=== PATIENT | male | born 2000 | race Caucasian/White ===

== ENCOUNTER 2018-07-07 10:06 | Emergency (ER) | payer OTHER ==
[2018-07-07 10:13] VITALS: BP 130/66
[2018-07-07] MEDS ORDERED: GUAIFENESIN 600 MG TABLET.SA PO ONE (10:41)
[2018-07-07] MEDS ORDERED: PSEUDOEPHEDRINE HCL 30 MG TABLET PO ONE (10:41)
[2018-07-07] MEDS ORDERED: LORATADINE 10 MG TABLET PO ONE (10:41)
[2018-07-07] MEDS ORDERED: IBUPROFEN 800 MG TABLET PO ONE (10:41)
--- NOTE | 2018-07-07 10:47 | ER Document Report ---
HPI - HPI Patient complains to provider of: Viral illness Time Seen by Provider: 07/07/18 10:35 Onset: Other - 2 days Onset/Duration: Gradual, Intermittent Quality of pain: Achy Severity: Moderate Pain Level: 4 Associated Symptoms: Body/muscle aches, Chills, Nonproductive cough, Rhinnorhea , Sinus pain/drainage, Sore throat Exacerbated by: Denies Relieved by: Denies Similar symptoms previously: Yes Recently seen / treated by doctor: No - ROS ROS below otherwise negative: Yes - CONSTITUTIONAL Constitutional: DENIES: Fever, Chills - EENT EENT: REPORTS: Sore Throat, Nasal Drainage-Clear, Congestion. DENIES: Ear Pain , Nasal Drainage-Purulent, Eye problems - NEURO Neurology: REPORTS: Headache. DENIES: Weakness, Vision blurred, Dizzinesss / Vertigo - CARDIOVASCULAR Cardiovascular: DENIES: Chest pain - RESPIRATORY Respiratory: REPORTS: Coughing. DENIES: Trouble Breathing - GASTROINTESTINAL Gastrointestinal: DENIES: Abdominal Pain, Nausea, Patient vomiting, Diarrhea, Constipation, Black / Bloody Stools - URINARY Urinary: DENIES: Dysuria, Urgency, Frequency - REPRODUCTIVE Reproductive: DENIES: :, Postmenopausal, Abnormal bleeding / discharge - MUSCULOSKELETAL Musculoskeletal: REPORTS: Extremity pain - Body aches, Back Pain - Body aches. DENIES: Neck Pain, Swelling - DERM Skin Color: Normal Skin Problems: None Past Medical History - General Information source: Patient - Social History Smoking Status: Current Some Day Smoker Cigarette use (# per day): Yes - 3-4 cigarettes a week Chew tobacco use (# tins/day): No Smoking Education Provided: Yes - 4 minutes Frequency of alcohol use: Social Drug Abuse: None Occupation: Active duty Lives with: Family Family History: Reviewed & Not Pertinent Patient has suicidal ideation: No Patient has homicidal ideation: No - Past Medical History Cardiac Medical History: Reports: None Pulmonary Medical History: Reports: None EENT Medical History: Reports: None Neurological Medical History: Reports: None Endocrine Medical History: Reports: None Renal/ Medical History: Reports: None Malignancy Medical History: Reports None GI Medical History: Reports: None Musculoskeletal Medical History: Reports None Skin Medical History: Reports None Psychiatric Medical History: Reports: None Traumatic Medical History: Reports: None Infectious Medical History: Reports: None Surgical Hx: Negative Past Surgical History: Reports: None - Immunizations Immunizations up to date: Yes Hx Diphtheria, Pertussis, Tetanus Vaccination: Yes Vertical Provider Document - CONSTITUTIONAL Agree With Documented VS: Yes Exam Limitations: No Limitations General Appearance: WD/WN, No Apparent Distress - INFECTION CONTROL TRAVEL OUTSIDE OF THE [place] IN LAST 30 DAYS: No - HEENT HEENT: Atraumatic, Normocephalic, PERRLA, Pharyngeal Tenderness, Pharyngeal Erythema. negative: Conjuctival Injection, Dental Injury, Normal ENT Exam - Nasal turbinates boggy pale purulent drainage, Pharyngeal Exudate, Tympanic Membrane Red, Tympanic Membrane Bulging - NECK Neck: Normal Inspection - RESPIRATORY Respiratory: Breath Sounds Normal, No Respiratory Distress, Chest Non-Tender - CARDIOVASCULAR Cardiovascular: Regular Rate, Regular Rhythm - GI/ABDOMEN Gastrointestinal: Abdomen Soft, Abdomen Non-Tender - MUSCULOSKELETAL/EXTREMETIES Musculoskeletal/Extremeties: MAEW, FROM, Tender - Body aches - NEURO Level of Consciousness: Awake, Alert, Appropriate Motor/Sensory: No Motor Deficit - DERM Integumentary: Warm, Dry, No Rash Course - Re-evaluation Re-evalutation: 07/07/18 10:47 After performing a Medical Screening Examination, I estimate there is LOW risk for ACUTE CORONARY SYNDROME, RESPIRATORY FAILURE, SEPSIS OR MENINGITIS, thus I consider the discharge disposition reasonable. I have reevaluated this patient multiple times and no significant life threatening changes are noted. The patient and I have discussed the diagnosis and risks, and we agree with discharging home with close follow-up. We also discussed returning to the Emergency Department immediately if new or worsening symptoms occur. We have discussed the symptoms which are most concerning (e.g., changing or worsening pain, trouble swallowing or breathing, neck stiffness, fever) that necessitate immediate return. - Vital Signs Vital signs: Temp Pulse Resp BP Pulse Ox 98.5 F 92 H 12 130/66 H 96 07/07/18 10:11 07/07/18 10:11 07/07/18 10:11 07/07/18 10:11 07/07/18 10:11 Discharge - Discharge Clinical Impression: URI (upper respiratory infection) Qualifiers: URI type: unspecified URI Qualified Code(s): J06.9 - Acute upper respiratory infection, unspecified Condition: Stable Disposition: HOME, SELF-CARE Additional Instructions: UPPER RESPIRATORY ILLNESS: You have a viral infection of the respiratory passages -- a "cold." This common infection causes nasal congestion, drainage, and often sore throat and cough. It is highly contagious. The disease usually lasts about 10 to 14 days. There is no "cure" for the viral infection -- it must run its course. If there is a complication, such as bacterial infection in the nose, sinuses, middle ear, or bronchial tubes, antibiotics may be required. The antibiotics won't affect the virus. Drink plenty of fluids. A humidifier may help. An expectorant medication or decongestant may make you more comfortable. Use acetaminophen or ibuprofen for fever or aches. See the doctor if fever persists over two days, if there is any significant worsening of your symptoms, or if you simply fail to improve as expected. DECONGESTANT MEDICATION: A decongestant medicine has been suggested. Often this medicine is combined in the same tablet with an antihistamine or expectorant. This type of medicine is helpful in treating a bad cold or sinus condition, as well as in treatment of the nasal congestion of hay fever. It is not of much benefit for lung infections. Decongestant medicines are related to stimulants. They can cause an increase in blood pressure and heart rate. Persons with heart disease and high blood pressure should not take decongestants without discussing this with the physician. If you develop palpitations, chest pain, headache, or tremors, stop the medicine and consult your physician. COUGH-SUPPRESSANT & EXPECTORANT MEDICATION: You are to use a cough medication as needed for relief of symptoms. This medicine is a combination of an expectorant (to make the mucous thinner and more easily "coughed up") and a cough suppressant (to reduce the frequency of coughing). The cough-suppressant medicine is related to narcotics. You may experience mild nausea and sleepiness. Some patients who are very sensitive to narcotics may have stomach pain from this medicine. Taking the medicine with food reduces these side effects. Do not drive or work with machinery until you know how this medicine affects you. The expectorant should have no side effects. Iodine-containing expectorants (such as organidin) should not be taken by persons with active thyroid disease unless approved by your doctor. Call the doctor if you develop shortness of breath, hives, rash, itching, lightheadedness, or severe nausea and vomiting. USE OF ACETAMINOPHEN (Tylenol): Acetaminophen may be taken for pain relief or fever control. It's much safer than aspirin, offering a wider range of "safe" dosages. It is safe during . Some brand names are Tylenol, Panadol, Datril, Anacin 3, Tempra, and Liquiprin. Acetaminophen can be repeated every four hours. The following are maximum recommended dosages: >89 pounds or adults 650 mg to 900 mg Acetaminophen can be repeated every four hours. Maximum dose not to exceed 4000 mg a day. SMOKING: If you smoke, you should stop smoking. The tar and chemicals in cigarette smoke are harmful. Smoking has been shown to cause: emphysema chronic bronchitis lung cancer mouth and throat cancer stomach and pancreas cancer premature aging defects In addition, smoking increases ear and lung infections in children of smokers. You were treated with Claritin 10 mg Sudafed 30 mg Mucinex 600 mg and ibuprofen 800 mg in the emergency room for your cough cold congestion Other medications that can help you with your symptoms are Flonase which is smry-bph-alboijj you can use it as directed on the box. Also use Chloraseptic spray for your sore throat as well as salt and soda solution gargles. Salt and soda solution 1 quart of water 1 tablespoon of salt 1 teaspoon of baking soda Mixed 3 ingredients together and boil for 1 minute Placed in a covered quart jar Use 1/2 ounce of cold solution to gargle 3 times a day FOLLOW-UP CARE: If you have been referred to a physician for follow-up care, call the physician s office for an appointment as you were instructed or within the next two days. If you experience worsening or a significant change in your symptoms, notify the physician immediately or return to the Emergency Department at any time for re-evaluation. Forms: Elevated Blood Pressure, Smoking Cessation Education
== END 2018-07-07 10:51 | disposition home or self-care (01) ==
LOC: ER 10:06
DX: J06.9 Acute upper respiratory infection, unspecified (principal); M79.10 Myalgia, unspecified site; R05 Cough; J34.89 Other specified disorders of nose and nasal sinuses; J02.9 Acute pharyngitis, unspecified; R51 Headache; M54.9 Dorsalgia, unspecified; F17.210 Nicotine dependence, cigarettes, uncomplicated; Z71.6 Tobacco abuse counseling
CPT/HCPCS: 99283; 99406

== ENCOUNTER 2019-12-22 11:30 | Emergency (ER) | payer OTHER ==
--- NOTE | 2019-12-22 11:49 | ER Document Report ---
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 Denies hemorrhoids. Denies constipation. He also reports about 6 months ago he had some testicular pain which was treated as epididymitis. Also reports he started having some low back pains right shoulder pain, some abdominal pain and faint rash on his upper right arm. Denies fever vomiting diarrhea. I have greeted and performed a rapid initial assessment of this patient. A comprehensive ED assessment and evaluation of the patient, analysis of test results and completion of the medical decision making process will be conducted by additional ED providers. TRAVEL OUTSIDE OF THE [place] IN LAST 30 DAYS: No - Related Data Allergies/Adverse Reactions: No Known Allergies Allergy (Verified 07/07/18 10:10) Past Medical History Renal/ Medical History: Denies: Hx Peritoneal Dialysis - Immunizations Immunizations up to date: Yes Hx Diphtheria, Pertussis, Tetanus Vaccination: Yes Physical Exam - Vital signs Vitals: Temp Pulse Resp BP Pulse Ox 98.7 F 89 16 127/67 H 99 12/22/19 11:34 12/22/19 11:34 12/22/19 11:34 12/22/19 11:34 12/22/19 11:34 Course - Vital Signs Vital signs: Temp Pulse Resp BP Pulse Ox 98.7 F 89 16 127/67 H 99 12/22/19 11:34 12/22/19 11:34 12/22/19 11:34 12/22/19 11:34 12/22/19 11:34
--- NOTE | 2019-12-22 11:53 | ER Document Report ---
ED General - General Chief Complaint: Bloody Stools Stated Complaint: BLOODY STOOL Time Seen by Provider: 12/22/19 11:44 Mode of Arrival: Ambulatory Information source: Patient Notes: triage note Pt presents to ED for blood in stool for 2 days. He also reports abdominal pain and back pain. 2/5 pain. No n/v. The pt denies hemorrhoids. The pt is concerned because over the last few months he has had intermitted testicular pain, abd pain, back pain, and muscle pain. He has been seen for all of these complaints. He states, "It all has to be connected. I think I have an infection. No one is helping me." The pt is aox4. Resps even and unlabored. 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 Denies hemorrhoids. Denies constipation. He also reports about 6 months ago he had some testicular pain which was treated as epididymitis. Also reports he started having some low back pains right shoulder pain, some abdominal pain and faint rash on his upper right arm. Denies fever vomiting diarrhea. 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 He reports symptoms beginning around 6 to 7 months ago with myalgias which began as chest pain and shoulder pains and mid upper back pains. He then began to have bilateral CVA pains and right upper quadrant pains and for last 2 days he began to have bright red bleeding from his rectum. He reports he drinks 1 bottle of Emilio Saxena on a monthly basis. Patient reports he does dip [place] snuff on a daily basis but does not smoke cigarettes. He has a 1-year-old at home and therefore cannot constitution party like when he was younger. He denies any physical training for the last 8 months because of his condition. Patient denies any history of overseas travel spleen problems nuchal rigidity vision problems exposure to sick people's or animals or tick bites or animal bites. He reports his mother has a history of hypertension and anxiety and multiple medical issues like arthritis. His father has hypertension only. 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 multiple times for the same issues and no one is paying any attention.." Patient reports since he was 15 years old in high school he has had a rash around his gluteal and perirectal area that is very pruritic and papular they also gets a rash around his neck anteriorly and posteriorly. He denies any rash around his axillary areas or pudendal's. TRAVEL OUTSIDE OF THE [place] IN LAST 30 DAYS: No - HPI Onset: This morning - Related Data Allergies/Adverse Reactions: No Known Allergies Allergy (Verified 07/07/18 10:10) Past Medical History - General Information source: Patient - Social History Smoking Status: Never Smoker Cigarette use (# per day): No Chew tobacco use (# tins/day): Yes - snuff [employer] type Smoking Education Provided: No Frequency of alcohol use: Occasional Drug Abuse: None Lives with: Family Family History: Reviewed & Not Pertinent Renal/ Medical History: Denies: Hx Peritoneal Dialysis - Immunizations Immunizations up to date: Yes Hx Diphtheria, Pertussis, Tetanus Vaccination: Yes Review of Systems - Review of Systems Constitutional: See HPI, Malaise, Recent illness EENT: No symptoms reported Cardiovascular: No symptoms reported Respiratory: No symptoms reported Gastrointestinal: No symptoms reported Genitourinary: No symptoms reported Male Genitourinary: No symptoms reported Musculoskeletal: No symptoms reported Skin: No symptoms reported Hematologic/Lymphatic: No symptoms reported Neurological/Psychological: No symptoms reported Physical Exam - Vital signs Vitals: Temp Pulse Resp BP Pulse Ox 98.7 F 89 16 127/67 H 99 12/22/19 11:34 12/22/19 11:34 12/22/19 11:34 12/22/19 11:34 12/22/19 11:34 Interpretation: Normal - General General appearance: Alert, Anxious - HEENT Head: Normocephalic, Atraumatic Eyes: Normal Pupils: PERRL Sinus: Normal Nasal: Normal Mucous membranes: Normal Pharynx: Normal Neck: Normal - Respiratory Respiratory status: No respiratory distress Chest status: Nontender Breath sounds: Normal Chest palpation: Normal - Cardiovascular Rhythm: Regular Heart sounds: Normal auscultation Murmur: No - Abdominal Inspection: Normal Distension: No distension Bowel sounds: Normal Tenderness: Tender - camille RUQ LUQ on p/p - Rectal Tenderness: Yes Stool: Heme positive Hemorrhoids: None Prostate: Tender - Genitourinary Tenderness: Other - deferred - Back Back: Tender - LS and mid back - Extremities General upper extremity: Normal inspection General lower extremity: Normal inspection - Neurological Neuro grossly intact: Yes Cognition: Normal Orientation: AAOx4 [place] Coma Scale Eye Opening: Spontaneous [place] Coma Scale Verbal: Oriented [place] Coma Scale Motor: Obeys Commands Jeremie Coma Scale Total: 15 Speech: Normal Motor strength normal: LUE, RUE, LLE, RLE Sensory: Normal - Psychological Associated symptoms: Anxious - Skin Skin Temperature: Warm Skin Moisture: Dry Skin irregularity: Rash - maculopapular gluteal and perirectal rash @ 15 cm gayle ; very hirsuit Course - Vital Signs Vital signs: Temp Pulse Resp BP Pulse Ox 98.7 F 89 16 127/67 H 99 12/22/19 11:44 12/22/19 11:34 12/22/19 11:34 12/22/19 11:34 12/22/19 11:34 - Laboratory Result Diagrams: 12/22/19 12:10 12/22/19 12:10 Laboratory results interpreted by me: 12/22/19 12/22/19 12:10 12:10 RDW 14.2 H Albumin 5.4 H - Diagnostic Test Radiology reviewed: Reports reviewed - EKG Interpretation by [facility] EKG shows normal: Sinus rhythm Rate: Normal Rhythm: NSR Critical Care Note - Critical Care Note Total time excluding time spent on procedures (mins): 90 Discharge - Discharge Clinical Impression: Folliculitis, Chest pain at rest GI bleed Qualifiers: GI bleed type/associated pathology: unspecified gastrointestinal hemorrhage type Qualified Code(s): K92.2 - Gastrointestinal hemorrhage, unspecified Arthralgia Qualifiers: Joint pain location: shoulder Laterality: unspecified laterality Qualified Code(s): M25.519 - Pain in unspecified shoulder Back pain Qualifiers: Back pain location: thoracic back pain Chronicity: chronic Back pain laterality: bilateral Qualified Code(s): M54.6 - Pain in thoracic spine; G89.29 - Other chronic pain Condition: Good Disposition: HOME, SELF-CARE Additional Instructions: Follow-up with travel money advisor like Franco here in [place] or with specialist of choice. Return to ER as needed and follow-up with base physicians about your rash and other conditions. Take medicines as directed off work as directed. Make sure you wash your gluteal and perineal areas with Hibiclens soap prior to bathing in your shower on a daily basis for least 2 weeks. Apply the soap gently and allowed to remain for at least 5 to 10 minutes prior to washing the soap off with cool water. Prescriptions: Sucralfate [Carafate 1 gm Tablet] 1 gm PO ACHS #120 tablet Doxycycline Monohydrate 100 mg PO BID #20 capsule Ketoconazole 200 mg PO DAILY #10 tablet Famotidine [Pepcid 20 mg Tablet] 20 mg PO BID #12 tablet Forms: Return to Work
[2019-12-22 12:21] LABS: ABSOLUTE BASOPHILS # (AUTO) 0.1 10^3/uL (0.0-0.2); ABSOLUTE EOSINOPHILS # (AUTO) 0.1 10^3/uL (0.0-0.6); ABSOLUTE MONOCYTES (AUTO) 0.5 10^3/uL (0.1-1.4); HEMOGLOBIN 14.5 g/dL (13.5-17.0); TOTAL CELLS COUNTED % (AUTO) 100 %
[2019-12-22 12:25] LABS: INTERNATIONAL RATION (INR) 1.05; PROTHROMBIN TIME 13.7 SEC (11.4-15.4)
[2019-12-22 12:27] LABS: ABSOLUTE LYMPHOCYTES (AUTO) 1.8 10^3/uL (0.5-4.7); ABSOLUTE NEUT (AUTO) 4.4 10^3/uL (1.7-8.2); BASOPHILS % (AUTO) 0.9 % (0-2); EOSINOPHILS % (AUTO) 2.1 % (0-6); HEMATOCRIT 42.3 % (37.9-51.0); MEAN CORPUSCULAR HEMOGLOBIN 30.3 pg (27.0-33.4); MEAN CORPUSCULAR HGB CONC 34.2 g/dL (32.0-36.0); MEAN CORPUSCULAR VOLUME 88 fl (80-97); MONOCYTES % (AUTO) 6.6 % (3-13); PLATELET COUNT 212 10^3/uL (150-450); RED BLOOD COUNT 4.79 10^6/uL (4.35-5.55); RED CELL DISTRIBUTION WIDTH 14.2 % (11.5-14.0); SEGMENTED NEUTROPHILS % (AUTO) 64.4 % (42-78); WHITE BLOOD COUNT 6.9 10^3/uL (4.0-10.5)
[2019-12-22 12:45] LABS: ALBUMIN 5.4 g/dL (3.5-5.0); ALKALINE PHOSPHATASE 54 U/L (38-126); ANION GAP 8 (5-19); ASPARTATE AMINO TRANSFERASE 28 U/L (17-59); BILIRUBIN,TOTAL 0.6 mg/dL (0.2-1.3); BLOOD UREA NITROGEN 18 mg/dL (7-20); CARBON DIOXIDE 28 mmol/L (22-30); CHLORIDE 101 mmol/L (98-107); GLUCOSE 103 mg/dL (75-110); POTASSIUM 4.9 mmol/L (3.6-5.0); TOTAL PROTEIN 8.2 g/dL (6.3-8.2)
--- NOTE | 2019-12-22 13:19 | RADIOLOGY REPORT (SQ) ---
EXAM DESCRIPTION: CT ABD/PELVIS WITH IV ONLY IMAGES COMPLETED DATE/TIME: 12/22/2019 1:10 pm REASON FOR STUDY: abd pain with bloody stools COMPARISON: None. TECHNIQUE: CT scan of the abdomen and pelvis performed using helical scanning technique with dynamic intravenous contrast injection. No oral contrast. Images reviewed with lung, soft tissue, and bone windows. Reconstructed coronal and sagittal MPR images reviewed. Delayed images for evaluation of the urinary system also acquired. All images stored on PACS. All CT scanners at this facility use dose modulation, iterative reconstruction, and/or weight based d osing when appropriate to reduce radiation dose to as low as reasonably achievable (ALARA). [facility]: Dose Right [facility]: CareDose [facility]: Dose Right [facility]: Teradose 4D [facility]: PISTIS Consult CONTRAST TYPE AND DOSE: contrast/concentration: Isovue 350.00 mg/ml; Total Contrast Delivered: 88.0 ml; Total Saline Delivered: 75.2 ml RENAL FUNCTION: None required. The patient is less than 50 years old. RADIATION DOSE: CT Rad equipment meets quality standard of care and radiation dose reduction techniq ues were employed. CTDIvol: 4.9 - 5.8 mGy. DLP: 555 mGy-cm.. LIMITATIONS: None. FINDINGS: LOWER CHEST: No significant findings. No nodules or infiltrates. LIVER: Normal size. No masses. No dilated ducts. SPLEEN: Normal size. No focal lesions. PANCREAS: No masses. No significant calcifications. No adjacent inflammation or peripancreatic fluid collections. Pancreatic duct not dilated. GALLBLADDER: No identified stones by CT criteria. No inflammatory changes to suggest cholecystitis. ADRENAL GLANDS: No significant masses or asymmetry. RIGHT KIDNEY AND URETER: No solid masses. No significant calcifications. No hydronephrosis or hyd roureter. LEFT KIDNEY AND URETER: No solid masses. No significant calcifications. No hydronephrosis or hydr oureter. AORTA AND VESSELS: No aneurysm. No dissection. Renal arteries, SMA, celiac without stenosis. RETROPERITONEUM: No retroperitoneal adenopathy, hemorrhage or masses. BOWEL AND PERITONEAL CAVITY: No masses or inflammatory changes. No free fluid or peritoneal masses. APPENDIX: Not visualized. PELVIS: No mass. No free fluid. Normal bladder. ABDOMINAL WALL: No masses. No hernias. BONES: No significant or acute findings. OTHER: No other significant finding. IMPRESSION: NO SIGNIFICANT OR ACUTE FINDING IN THE ABDOMEN OR PELVIS ON CT SCAN WITH IV CONTRAST. TECHNICAL DOCUMENTATION: JOB ID: [id number] Quality ID # [id number]: Final reports with documentation of one or more dose reduction techniques (e.g., Au tomated exposure control, adjustment of the mA and/or kV according to patient size, use of iterative reconstruction technique) 2010 [employer]- All Rights Reserved Reading location - IP/workstation name: [email or web address]
--- NOTE | 2019-12-22 13:20 | RADIOLOGY REPORT (SQ) ---
EXAM DESCRIPTION: CHEST 2 VIEWS IMAGES COMPLETED DATE/TIME: 12/22/2019 1:12 pm REASON FOR STUDY: cp back pains COMPARISON: None. EXAM PARAMETERS: NUMBER OF VIEWS: two views TECHNIQUE: Digital Frontal and Lateral radiographic views of the chest acquired. RADIATION DOSE: NA LIMITATIONS: none FINDINGS: LUNGS AND PLEURA: No opacities, masses or pneumothorax. No pleural effusion. MEDIASTINUM AND HILAR STRUCTURES: No masses or contour abnormalities. HEART AND VASCULAR STRUCTURES: Heart normal size. No evidence for failure. BONES: No acute findings. HARDWARE: None in the chest. OTHER: No other significant finding. IMPRESSION: NO ACUTE RADIOGRAPHIC FINDING IN THE CHEST. TECHNICAL DOCUMENTATION: JOB ID: [id number] 2010 [employer]- All Rights Reserved Reading location - IP/workstation name: [email or web address]
[2019-12-22 13:49] LABS: APPEARANCE,URINE CLEAR; BILIRUBIN,URINE NEGATIVE (NEGATIVE); COLOR,URINE YELLOW; GLUCOSE, URINE NEGATIVE (NEGATIVE); KETONES,URINE NEGATIVE (NEGATIVE); LEUKOCYTE ESTERASE,URINE NEGATIVE (NEGATIVE); NITRITE,URINE NEGATIVE (NEGATIVE); PROTEIN,URINE NEGATIVE (NEGATIVE); URINE SPECIFIC GRAVITY 1.038; UROBILINOGEN,URINE NEGATIVE mg/dL (<2.0)
[2019-12-22 14:14] VITALS: BP 114/69
[2019-12-22 15:05] LABS: CHLAM PCR NOT DETECTED (NOT DETECT)
== END 2019-12-22 14:11 | disposition home or self-care (01) ==
LOC: ER 11:30
DX: L73.9 Follicular disorder, unspecified (principal); R07.9 Chest pain, unspecified; K92.2 Gastrointestinal hemorrhage, unspecified; G89.29 Other chronic pain; M54.6 Pain in thoracic spine; R21 Rash and other nonspecific skin eruption; M25.511 Pain in right shoulder; R10.9 Unspecified abdominal pain; M25.519 Pain in unspecified shoulder
CPT/HCPCS: 36415; 71046; 74177; 80053; 81001; 82270; 82550; 84484; 85025; 85610; 85652; 86308; 87491; 87591; 99285

== ENCOUNTER 2020-01-09 10:31 | Emergency (ER) | payer OTHER ==
[2020-01-09] MEDS ORDERED: MAG HYDROX/AL HYDROX/SIMETH SUSP 30 ML UDCUP PO ONE (11:23)
[2020-01-09] MEDS ORDERED: FAMOTIDINE 20 MG TABLET PO ONE (11:23)
[2020-01-09] MEDS ORDERED: METOCLOPRAMIDE HCL 10 MG TABLET PO ONE (11:23)
--- NOTE | 2020-01-09 11:23 | ER Document Report ---
ED General - General Chief Complaint: Bloody Stools Stated Complaint: RECTAL BLEEDING Time Seen by Provider: 01/09/20 10:42 Primary Care Provider: RYAN LARA MD [ACTIVE STAFF] - Follow up as needed Notes: 19-year-old male presents with 7 to 8 weeks of intermittent upper abdominal pain and bloody stools. The stools are maroon to red with no clots and occur intermittently. The pain is "under my ribs" in epigastric region which is worse with food and better with antacids. He has been seen 3 times prior [place] this ED [place] has had negative CTs and labs and has been sent to GI at least twice. He is also on a course of treatment for what sounds like H. pylori. He says that the referral he was given by a non- hospital was not good at the GI. He has no lightheadedness or fatigue. TRAVEL OUTSIDE OF THE [place] IN LAST 30 DAYS: No - Related Data Allergies/Adverse Reactions: No Known Allergies Allergy (Verified 01/09/20 10:44) Past Medical History - Social History Smoking Status: Current Every Day Smoker Chew tobacco use (# tins/day): No Frequency of alcohol use: Social Drug Abuse: None Family History: Reviewed & Not Pertinent Patient has homicidal ideation: No Renal/ Medical History: Denies: Hx Peritoneal Dialysis - Immunizations Immunizations up to date: Yes Hx Diphtheria, Pertussis, Tetanus Vaccination: Yes Physical Exam - Vital signs Vitals: Temp 97.8 F 01/09/20 10:45 Course - Re-evaluation Re-evalutation: 01/09/20 13:15 Chronic recurrent epigastric pain and bloody stools with no ongoing evidence of brisk GI bleeding. Has had several rectal exam was guaiac CTs and labs and has been unable to follow-up with GI. He is off his proton pump inhibitor. I gave him a dose of Pepcid and antiemetic which improved. He has no abdominal tenderness. His CBC was sent but hemolyzed. Given his stability, normal vital signs lack of focal tenderness I do not think that this would change my management and he is stable to follow-up with GI as an outpatient. His differential of course still includes Crohn's, colitis, functional bowel disease IBS etc. but I doubt acute infectious process. I have discussed with the patient there likely diagnosis, aftercare plan, follow-up plans and my usual and customary return precautions. They verbalized understanding of this. - Vital Signs Vital signs: Temp Pulse Resp BP Pulse Ox 98.5 F 139 H 18 137/71 H 100 01/09/20 12:37 01/09/20 12:37 01/09/20 12:37 01/09/20 12:37 01/09/20 12:37 - Laboratory Result Diagrams: 01/09/20 12:18 Discharge - Discharge Clinical Impression: Rectal bleeding Condition: Good Disposition: HOME, SELF-CARE Instructions: Rectal Bleeding, Unclear Cause ([facility]) Additional Instructions: As we discussed you need to be referred to a GI doctor. I have included a referral in your discharge instructions here if you like to see someone in the community. L Referrals: RYAN LARA MD [ACTIVE STAFF] - Follow up as needed
[2020-01-09 12:38] VITALS: BP 137/71
[2020-01-09 13:11] LABS: ABSOLUTE BASOPHILS # (AUTO) 0.1 10^3/uL (0.0-0.2); ABSOLUTE EOSINOPHILS # (AUTO) 0.1 10^3/uL (0.0-0.6); ABSOLUTE LYMPHOCYTES (AUTO) 1.9 10^3/uL (0.5-4.7); ABSOLUTE MONOCYTES (AUTO) 0.6 10^3/uL (0.1-1.4); ABSOLUTE NEUT (AUTO) 5.8 10^3/uL (1.7-8.2); BASOPHILS % (AUTO) 0.7 % (0-2); EOSINOPHILS % (AUTO) 1.7 % (0-6); HEMATOCRIT 45.1 % (37.9-51.0); HEMOGLOBIN 15.5 g/dL (13.5-17.0); LYMPHOCYTES % (AUTO) 22.8 % (13-45); MEAN CORPUSCULAR HGB CONC 34.2 g/dL (32.0-36.0); MEAN CORPUSCULAR VOLUME 88 fl (80-97); MONOCYTES % (AUTO) 7.5 % (3-13); PLATELET COUNT 215 10^3/uL (150-450); RED BLOOD COUNT 5.15 10^6/uL (4.35-5.55); RED CELL DISTRIBUTION WIDTH 13.5 % (11.5-14.0); SEGMENTED NEUTROPHILS % (AUTO) 67.3 % (42-78); TOTAL CELLS COUNTED % (AUTO) 100 %; WHITE BLOOD COUNT 8.6 10^3/uL (4.0-10.5)
== END 2020-01-09 12:39 | disposition home or self-care (01) ==
LOC: ER 10:31
DX: R19.5 Other fecal abnormalities (principal); R10.10 Upper abdominal pain, unspecified; R07.81 Pleurodynia; R10.13 Epigastric pain; F17.200 Nicotine dependence, unspecified, uncomplicated
CPT/HCPCS: 36415; 85025; 99284